=== PATIENT | female | born 1975 | race Two or more races ===

== ENCOUNTER 2023-06-26 18:40 | Emergency (ER) | payer SELFPAY ==
[~2023-06-26] VITALS: Ht 152.4 cm; Wt 79.5 kg
[2023-06-26] MEDS ORDERED: IBUP-1506 PO (21:56)
[2023-06-26] MEDS ORDERED: LIDOCAINE 5% TRANSDERMAL PATCH TD ONE (22:00)
[2023-06-26] MEDS ORDERED: KETOROLAC TROMETHAMINE 30 MG/ML VIAL IM ONE (22:00)
[2023-06-26 23:08] VITALS: BP 135/89; PULSE 69; RESP 18; TEMP 98.3
== END 2023-06-26 23:24 | disposition home or self-care (01) ==
LOC: EMS 18:41
DX: S16.1XXA Strain of muscle, fascia and tendon at neck level, initial encounter (principal); Z90.49 Acquired absence of other specified parts of digestive tract; V89.2XXA Person injured in unspecified motor-vehicle accident, traffic, initial encounter; Y93.89 Activity, other specified; Y92.89 Other specified places as the place of occurrence of the external cause; Y99.8 Other external cause status
CPT/HCPCS: 99285; 70450; 72125; 72131; 96372; J1885